=== PATIENT | female | born 1960 | race Caucasian/White ===

== ENCOUNTER 2021-02-18 19:37 | Emergency (ER) | payer MEDICARE, SELFPAY ==
--- NOTE | ~2021-02-18 | XR_ITS ---
EXAMINATION: CR ELBOW, LEFT CLINICAL INFORMATION: Fall. Pain. COMPARISON: None TECHNIQUE: Three views of the left elbow. FINDINGS: Soft tissue laceration is suspected over the ulnar (nonweighted subcutaneous emphysema tracking in the superficial soft tissues of the distal arm and proximal forearm. No underlying acute fracture or dislocation is seen. No abnormal elevation of the anterior fat pad is seen to suspect a occult elbow joint effusion. No radiopaque foreign body is seen in the soft tissues. XR/XR elbow LT min 3V IMPRESSION: 1. Soft tissue laceration with subcutaneous emphysema in the soft tissues of the elbow. 2. No acute fracture or dislocation seen.
[2021-02-18 19:48] VITALS: BP 140/80; PULSE 80; RESP 16; TEMP 36.3; O2SAT 97; BMI 23.4
--- NOTE | 2021-02-18 21:45 | ED_ITS ---
HPI - Fall General Chief Complaint: Fall Stated Complaint: Fall Time Seen by Provider: 02/18/21 21:34 Source: patient Mode of arrival: ambulatory History of Present Illness HPI Narrative: 60-year-old female who presents after having fallen onto her left elbow onto concrete without head strike or loss of consciousness and unknown last Tdap. Patient denies any numbness/tingling/weakness to the distal and Related Data Previous Rx's Medication Instructions Recorded cephalexin 500 mg PO Q12H 5 Days #10 cap 02/18/21 Allergies Allergy/AdvReac Type Severity Reaction Status Date / Time amoxicillin [AMOXICILLIN] Allergy Unknown DIARRHEA Unverified 02/18/21 19:54 Review of Systems Review of Systems: Pertinent positives and negatives as stated in HPI 10 point review of systems is otherwise negative. [facility] Past Medical History Source: nursing notes reviewed Medical History Degenerative disc disease Hyperlipidemia Social History Social History Alcohol intake: never Smoked in Last 30 Days: No Use of substances other than those prescribed or required for medical reasons: No Any prior treatment program specific to substance use: No Advance Directives: No Advance Directives Information Provided: Yes Patient : No Physical Exam Vital Signs: Vital Signs: Last Vital Signs Temp 97.4 F 02/18/21 19:48 Pulse 80 02/18/21 19:48 Resp 16 02/18/21 19:48 BP 140/80 H 02/18/21 19:48 Pulse Ox 97 02/18/21 19:48 Body Mass Index 23.4 VITAL SIGNS: Reviewed. GENERAL: Well developed, well nourished, in no acute distress. HEAD: Normocephalic/atraumatic EYES: PERRLA, EOMI OROPHARYNX: no oral lesions noted, posterior pharynx clear NECK: Supple, no adenopathy LUNGS: Normal breath sounds. No adventitious sounds or accessory muscle use. SpO2<97> CARDIOVASCULAR: Regular rate and rhythm without noted murmurs ABDOMEN: Soft, non-tender, non-distended with bowel sounds. LEFT UPPER EXTREMITY: 2.5 cm laceration over the elbow, palpable radial/ulnar pulse, capillary refill less than 3 seconds, full range of motion. Course Course Course Narrative: 60-year-old female with history and clinical presentation consistent with fall resulting in laceratio over elbow in review of x-ray negative for acute fracture or dislocation but showing subcutaneous emphysema and soft tissue available. Patient received Tdap and have 3 suture placed. Procedures Laceration Laceration 1: Site: upper extremity Side (If applicable): left Size (cm): 2.5 Description: linear Depth: simple, single layer and involves muscle layer Local Anesthetic: lidocaine 2% Amount of anesthesia used (mL): 2 Pre-repair: wound explored, irrigated extensively and deep structures intact Skin layer closed with: nylon Size (cm): 4-0 Number of sutures: 3 Technique: simple, interrupted Discharge Plan Discharge Clinical Impression: Laceration Patient Disposition: Home, Self-Care Instructions: Care For Your Stitches (ED), Laceration (ED) Additional Instructions: 1. Resume all home medications as prescribed. 2. Use [id number] Tylenol and/or ibuprofen as needed for pain control. 3. Apply ice for 5-10 minutes to unexposed skin, 3 to 4 times a day. 4. Please follow-up with your primary care provider in 5 days for removal of the sutures. Return to the emergency room should you notice any acute worsening of swelling, redness, drainage. Prescriptions: New cephalexin 500 mg capsule 500 mg PO Q12H 5 Days Qty: 10 RF: 0 Referrals: Luis A Reynolds MD [Primary Care Provider] - 2 days (Re-evaluation suture removal in 5 days)
[2021-02-18] MEDS: Lidocaine HCl 2 % MPF 5 ML VIAL SUBCUT (22:09)
[2021-02-18] MEDS: Diphth,Pertus(ACell),Tet Adult 0.5 ML SYRINGE IM (22:09)
[2021-02-18] MEDS: cephALEXin 500 MG CAPSULE PO (22:10)
== END 2021-02-18 22:36 | disposition home or self-care (01) ==
PROVIDERS: Emergency Provider Student in an Organized Health Care Education/Training Program; PCP Internal Medicine
DX: S51.012A Laceration without foreign body of left elbow, initial encounter (principal); W01.0XXA Fall on same level from slipping, tripping and stumbling without subsequent striking against object, initial encounter; Y93.89 Activity, other specified; Y92.480 Sidewalk as the place of occurrence of the external cause; Y99.9 Unspecified external cause status
CPT/HCPCS: 12031; 73080; 90471; 90715; 99284